=== PATIENT | female | born 1960 | race Caucasian/White ===

== ENCOUNTER 2019-11-12 12:29 | Observation (INO) | payer OTHER ==
[~2019-11-12] VITALS: Ht 166.4 cm; Wt 87.7 kg
[2019-11-12 12:39] VITALS: Ht 166.4 cm; Wt 87.7 kg
--- NOTE | 2019-11-12 13:00 | NUR ---
PATIENT AAOX4 PRESENTS TO THE ED WITH C/O ABDOMINAL PAIN X 2 WEEKS. PT STS THAT SHE HAD HERNIA SURGERY A FEW WEEKS AGO AND THE MESH IS CAUSING SEVERE PAIN AND NEEDS TO BE REMOVED. BREATHING E/U, ABD SOFT, NON DISTENDED, TENDER ON PALPATION. SKIN WARM DRY AND INTACT. NO OTHER SS OF DISTRESS NOTED. WILL CONTINUE TO MONITOR.
--- NOTE | 2019-11-12 13:20 | NUR ---
DR SAWYER AT BEDSIDE FOR ASSESSMENT.
[2019-11-12 13:30] LABS: BASOPHIL % 0.7 % (0-2); PLATELET COUNT 254 x10^3mcL (130-400)
[2019-11-12 13:34] LABS: RED CELL DISTRIBUTION WIDTH 16.7 % (11.5-14.5)
[2019-11-12 13:36] LABS: UA SPECIFIC GRAVITY 1.025 (1.005-1.035); microscopic required? YES; urine erythrocyte TRACE (NEGATIVE)
[2019-11-12 13:44] LABS: CALCIUM 8.5 mg/dL (8.5-10.1); CARBON DIOXIDE 26.2 mmol/L (21-32); CHLORIDE SERUM 101 mmol/L (98-107); CREATININE SERUM 0.8 mg/dL (0.6-1.0); GFR1 > 60 mL/min; GLUCOSE SERUM 95 mg/dL (74-106); POTASSIUM SERUM 3.8 mmol/L (3.5-5.1); SODIUM SERUM 138 mmol/L (136-145)
[2019-11-12 13:49] LABS: ALBUMIN 4.2 g/dL (3.4-5.0); ALKALINE PHOSPHATASE 94 U/L (46-116); ALT/SGPT 22 U/L (14-59); AST/SGOT 18 U/L (15-37); BILIRUBIN TOTAL 0.4 mg/dL (0.20-1.00); LIPASE 91 IU/L (73-393); TOTAL PROTEIN, SERUM 7.2 g/dL (6.4-8.2)
--- NOTE | 2019-11-12 15:32 | NUR ---
REPORT PROVIDED TO FATIMAH WEISSPLASTER TENDER FOR CONTINUED CARE OF PATIENT.
--- NOTE | 2019-11-12 15:42 | NUR ---
MEDICATED PER MD ORDERS- SEE EMR
--- NOTE | 2019-11-12 15:55 | NUR ---
RECEIVED PT FROM ER. STABLE. STATED ABD PAIN, 07/13, OFFERED MEDICINE BUT PT SAID SHE CAN TOLERATE PAIN NOW, SHE JUST RECEIVED MORPHIN IV FROM ER. SAFTEY PRECAUTIONS ARE IN PLACE, V/S STABLE. PT IS A/O X4. ADMISSION HISTORY AND ASSESSMENT DONE. NS RESUMED AT 150ML/HR FROM ER. WILL MONITOR.
[2019-11-12 16:54] VITALS: BP 112/54
--- NOTE | 2019-11-12 19:08 | NUR ---
PT RESTING IN BED COMFORTABLY, DENIES PAIN THIS TIME. STABLE. GAVE REPORT TO WELFARE PROJECT MANAGER NURSE.
[2019-11-12 19:37] VITALS: BP 114/61
--- NOTE | 2019-11-12 20:13 | NUR ---
PT A/A/O X4. DENIES DIZZINESS AND HEADACHE. BREATH SOUNDS CLEAR. BREATHING EVEN AND UNLABORED ON ROOM AIR. DENIES CHEST PAIN AND PRESSURE. HR 57. BOWEL SOUNDS ACTIVE. C/O NAUSEA AND ABD PAIN. GAVE PT MORPHINE IVP FOR ABDOMINAL PAIN AND ZOFRAN IVP FOR NAUSEA. PT TOLERATED IT WELL. WOUND NOTED ON THE UMBILICAL AREA STEEL SAMPLER. IV INTACT ON THE RAC INFUSING WITH NS AT 80 ML/HR. MADE PT COMFORTABLE. PLACED CALL LIGHT WITH IN REACH. WILL CONTINUE TO MONITOR
[2019-11-13] VITALS (7 sets, daily range): BP systolic 102–137; BP diastolic 50–65
--- NOTE | 2019-11-13 00:25 | NUR ---
PT C/O ABDOMINAL PAIN AND HEADACHE. GAVE PT MORPHINE IVP. PT TOLERATED IT WELL. WILL CONTINUE TO MONITOR.
--- NOTE | 2019-11-13 00:30 | NUR ---
PT C/O NAUSEA FROM MORPHINE. GAVE PT ZOFRAN IVP. PT TOLERATED IT WELL. WILL CONTINUE TO MONITOR.
--- NOTE | 2019-11-13 01:39 | NUR ---
PT RESTING WITH EYES CLOSED. NO DISTRESS AND DISCOMFORT NOTED. WILL CONTINUE TO MONITOR.
--- NOTE | 2019-11-13 07:00 | NUR ---
PT C/O NAUSEA AND HEADACHE AND PT DOES NOT WANT MORPHINE. DR. ENCARNACION NOTIFIED. FOR ALTERNATIVE PAIN MEDICATION. NEW ORDERS GIVEN AND CARRIED OUT. GAVE PT ZOFRAN IVP FOR NAUSEA. PT TOLERATED IT WELL. WILL ENDORSE TO THE AM NURSE ACCORDINGLY.
--- NOTE | 2019-11-13 07:15 | NUR ---
PT IS AAOX4. MED SURG PT. RESP EVEN AND UNLABORED. NO DISTRESS NOTED. PT NPO FOR PENDING SURGERY PROCEDURE. IVF RUNNING TO RAC AT 80ML HOUR. PT HAS SURGICAL WOUND AT UMBILICUS, MISSY. NO S/S OF INFECTION NOTED. CALL LIGHT WITHIN REACH. BED IN LOWEST POSITION. WILL CONTINUE TO MONITOR.
[2019-11-13 07:16] LABS: BASOPHIL % 0.6 % (0-2); PLATELET COUNT 201 x10^3mcL (130-400)
[2019-11-13 07:28] LABS: RED CELL DISTRIBUTION WIDTH 16.2 % (11.5-14.5)
[2019-11-13 07:37] LABS: CALCIUM 8.4 mg/dL (8.5-10.1); CARBON DIOXIDE 29.6 mmol/L (21-32); CHLORIDE SERUM 104 mmol/L (98-107); CREATININE SERUM 0.7 mg/dL (0.6-1.0); GFR1 > 60 mL/min; GLUCOSE SERUM 80 mg/dL (74-106); POTASSIUM SERUM 3.7 mmol/L (3.5-5.1); SODIUM SERUM 140 mmol/L (136-145)
--- NOTE | 2019-11-13 08:12 | NUR ---
PT TO HAVE HERNIA REPAIR THIS MORNING, REPORT GIVEN TO FATIMAH LO. PT HAS HAD DANELLE WIPES APPLIED AND CHECK LIST COMPLETED. PT HAS HAD NO TEST, BUT PT REPORTS TO HAVE HAD A TOTAL HYSTERECTOMY. SCHEDULED HEPARIN SQ HELD DUE TO PENDING PROCEDURE. PT N/S LOCKED AND IS AWAITING TRANSFER TO O/R. CXR PREPROCEDURE HAS BEEN COMPLETED. CALL LIGHT WITHIN REACH.
--- NOTE | 2019-11-13 08:41 | NUR ---
PT TRANSFERRED FOR SURGICAL PROCEDURE AT THIS TIME.
--- NOTE | 2019-11-13 11:46 | NUR ---
PT BACK FROM PROCEDURE, REPORT GIVEN BY TERESITA SHERIDAN. PT HAS REPAIR OF UNBILICUS HERNIA WITH EXPLANTATION OF MESH. ETT AND GENERAL ANTHESIA. PT HAD ONE INCISION THEN COVERED WITH FABY 4X4 AND ABDOMINAL BINDER PLACED. VS:97/7F, 80, 18, 137/65, O2 SAT 95% ON R/A. DENIES PAIN AT THIS TIME. WILL CONTINUE TO MONITOR.
--- NOTE | 2019-11-13 11:56 | NUR ---
PT WANTS TO AMA, IS DOWNSTAIRS IN THE LOBBY. PT WANTS TO AMA D/T THE NOISE FROM AN EMERGENCY. TOLD PT THAT WE WERE HAVING AN EMERGERNCY, BUT SHE STATED SHE DID NOT CARE AND SHE WANTED TO LEAVE. AMA FORM SIGNED AT THIS TIME. DR ESTEVES AWARE, STATED PT WILL HAVE TO GO TO ER TO GET MIGUEL REMOVED. WILL MAKE PT AWARE. WILL MAKE DR SAWYER AWARE.
--- NOTE | 2019-11-13 13:01 | NUR ---
RECEIVED ORDER FROM DR. HUDSON, CARDIAC DIET, 2GM SODIUM, LOW FAT.
--- NOTE | 2019-11-13 13:44 | NUR ---
NORCO PO PRN GIVEN FOR ABDOMINAL PAIN 12/10. EXTRA FLUIDS GIVEN AND ENCOURAGED. ACTIVITY ENCOURGAGED. PT PASSED GAS SINCE SURGERY. RESP EVEN AND UNLABORED. CALL LIGHT WITHIN REACH.
--- NOTE | 2019-11-13 17:48 | NUR ---
NORCO PO PRN GIVEN FOR ABDOMINAL PAIN, THROBBING 11/10. EXTRA FLUIDS GIVEN. RESP EVEN AND UNLABORED. CALL LIGHT WITHIN REACH.
--- NOTE | 2019-11-13 18:01 | NUR ---
RESP EVEN AND UNLABORED. ABDOMINAL DRESSING CDI. IVF RUNNING TO RAC. SITE WNL. PT DENIES PAIN. CALL LIGHT WITHIN REACH. BED IN LOWEST POSITION. WILL ENDORSE ALL CARE TO NOC SHIFT RN.
[2019-11-13] MEDS ORDERED: ACID REDUCER20 MG PO (18:21)
[2019-11-13] MEDS ORDERED: CALCIUM 600 +1 EACH PO (18:23)
[2019-11-13] MEDS ORDERED: TRAZODONE150 M1 PO (18:25)
[2019-11-13] MEDS ORDERED: CITALOPRAM20 MG/10 M PO (18:26)
[2019-11-13] MEDS ORDERED: CARVEDILOL12.5 M1 PO (18:27)
[2019-11-13] MEDS ORDERED: EZALLOR SPRINKL10 MG PO (18:27)
[2019-11-13] MEDS ORDERED: ZESTRIL40 MG PO (18:27)
[2019-11-13] MEDS ORDERED: VERAPAMIL HCL120 M2 PO (18:28)
[2019-11-13] MEDS ORDERED: VERAPAMIL HCL120 MG PO (18:29)
[2019-11-13] MEDS ORDERED: ALLEGRA ALLERG180 M1 PO (18:29)
[2019-11-13] MEDS ORDERED: LASIX20 MG PO (18:31)
[2019-11-13] MEDS ORDERED: NAMENDA10 M2 PO (18:32)
[2019-11-13] MEDS ORDERED: NATURAL IRON65 MG PO (18:34)
[2019-11-13] MEDS ORDERED: NASAL MIST126 ML (18:34)
--- NOTE | 2019-11-13 18:47 | NUR ---
PT'S MED RECONCILIATION COMPLETED. PAGED DR. ESTEVES TO VERIFY MEDICATIONS. WILL ENDORSE TO NOC SHIFT RN.
--- NOTE | 2019-11-13 18:55 | NUR ---
DR. ESTEVES PAGED TO VERIFY MEDICATION RECONCILIATION. AWAITING CALL BACK.
--- NOTE | 2019-11-13 19:09 | NUR ---
SPOKE TO DR. ESTEVES. DR. ESTEVES STATED ONLY START PT'S B/P MEDS FOR MED RECONCILATION. OTHER MEDS WILL BE STARTED TOMORROW.
--- NOTE | 2019-11-13 19:10 | NUR ---
RECEIVED PT LAYING IN BED WITH HOB ELEVATED. BREATHING IS EVEN AND UNLABORED ON RA. NO RESP DISTRESS NOTED. DENIES N/V/D/C AT THIS TIME. ABD IS SOFT, ROUND, AND NONDISTENDED. VOIDS FREELY. AMBULATORY. SURGICAL WOUND W MIGUEL, DRSG, AND ABD BINDER. CDI. DENIES ANY PAIN A THIS TIME. IV TO RAC PATENT AND INTACT. NO ERYTHEMA NOTED. WILL CONTINUE TO MONITOR.
--- NOTE | 2019-11-13 19:16 | NUR ---
REPORTED TO MARIAH MENA THAT PT'S OCCULT STOOL RESULT CAME BACK POSITIVE. MARIAH MENA STATED SHE WILL CONTACT DR. MELÉNDEZ AND CONSULT WITH HIM. NO NEW ORDERS AT THIS TIME.
--- NOTE | 2019-11-13 21:50 | NUR ---
ROUTINE MEDICATIONS ADMINISTERED AND TOLERATED WELL. NO ACUTE DISTRESS NOTED. BREATHING IS EVEN AND UNLABORED ON RA. NO RESP DISTRESS NOTED. WILL CONTINUE TO MONITOR.
--- NOTE | 2019-11-13 23:56 | NUR ---
PT WANTS TO AMA. ENCOURAGED AND EDUCATED PT TO NOT LEAVE AGAINST MEDICAL ADVICE. PT STATED SHE WANTS TO LEAVE BECAUSE ITS TOO NOISY. TOLD PT THERE WAS A MEDICAL EMERGENCY, SHE STATED SHE DID NOT CARE AND HER IS DOWNSTAIRS. INFORMED DR ESTEVES, PER DR ESTEVES IF PT AMA'S SHE WILL HAVE TO GET MIGUEL REMOVED IN THE ER ON HER OWN. WILL INFORM PT. WILL MAKE DR SAWYER AWARE.
--- NOTE | 2019-11-14 00:05 | NUR ---
ATTEMPTED TO CALL DR SAWYER, NO ANSWER. LEFT A MESSAGE TO CALL BACK.
--- NOTE | 2019-11-14 00:19 | NUR ---
IV DC'D AT THIS TIME. PT STATED SON WILL ARRIVE IN 10 MINUTES. TOLD PT WHEN SON IS HERE, WE WILL BRING HER DOWN. PT VERBALIZES UNDERSTANDING.
--- NOTE | 2019-11-14 00:25 | NUR ---
PT'S FAMILY MEMBERS DOWNSTAIRS. BEING ACCOMPANIED DOWN VIA WHEELCHAIR WITH NANCY MANZANARES.
--- NOTE | 2019-11-14 02:02 | NUR ---
DR SAWYER AWARE OF PT LEAVING AGAINST MEDICAL ADVICE. NO FURTHER ORDERS GIVEN. CHARGE NURSE DOLORES AWARE
== END 2019-11-14 00:25 | disposition left against medical advice (07) ==
LOC: ED 12:29 → MU 14:50
PROVIDERS: Emergency Medicine; ADMIT Hospitalist; ATTEND Hospitalist
DX: R10.33 Periumbilical pain (principal); T78.40XA Allergy, unspecified, initial encounter; R22.2 Localized swelling, mass and lump, trunk; R19.7 Diarrhea, unspecified; R11.10 Vomiting, unspecified; I10 Essential (primary) hypertension; E78.5 Hyperlipidemia, unspecified; Y92.89 Other specified places as the place of occurrence of the external cause
CPT/HCPCS: G0378; J0330; J0690; J1644; J2175; J2250; J2270; J2405; J2704; J2710; J3010; J3490; J7030; J7120; Q0092